=== PATIENT | male | born 1960 | race Caucasian/White ===

== ENCOUNTER 2016-07-24 06:16 | Day surgery (SDC) | payer BC ==
[2016-07-20 13:17] VITALS: BMI 24.3
[~2016-07-24 06:16] MED LIST: HYDROmorphone 1 MG/ML 1 ML SYRINGE IVP PRN; MIDAZOLAM 2 MG/2 ML VIAL IV PRN; ONDANSETRON 4 MG/2 ML VIAL IVP ONE
[2016-07-24] MEDS ORDERED: SODIUM CHLORIDE 0.9% 1,000 ML IV ONE (06:47)
[2016-07-24 07:10] LABS: Basophils % (A) 1 %; CH 32.4; CHCM 35.2; Eosinophils # (A) 0.2 k/uL (0-0.7); Eosinophils % (A) 4 %; HCT 43.4 % (39.0-53.0); HDW 2.84; HGB 14.8 gm/dL (13.0-17.5); Luc % (Auto) 2; Lymphocytes # (A) 1.5 k/uL (1.0-4.8); Lymphocytes % (A) 26 %; MCH 31.7 pg (25.0-35.0); MCHC 34.2 g/dL (31.0-37.0); MCV 92.5 fL (80.0-100.0); Mean Platelet Volume 7.1; Monocytes # (A) 0.3 k/uL (0-1.0); Monocytes % (A) 6 %; Neutrophils # (A) 3.5 k/uL (1.3-7.7); Neutrophils % (A) 62 %; RBC 4.69 m/uL (4.30-5.90); RDW 12.9 % (11.5-15.5); WBC 5.6 k/uL (3.8-10.6)
[2016-07-24 07:21] LABS: Anion Gap 8 mmol/L; Blood Urea Nitrogen 11 mg/dL (9-20); Calcium 8.7 mg/dL (8.4-10.2); Carbon Dioxide 27 mmol/L (22-30); Chloride 106 mmol/L (98-107); Glucose 91 mg/dL (74-99); Non-African American GFR(MDRD) >60 (>60 ml/min/1.73 sqM); Potassium 3.9 mmol/L (3.5-5.1); Sodium 141 mmol/L (137-145)
[2016-07-24] MEDS ORDERED: MIDAZOLAM 2 MG/2 ML VIAL ONE (08:32)
[2016-07-24] MEDS ORDERED: ISOPROTERENOL 250 MCG/1.25 ML SYR IV ONE (08:32)
[2016-07-24] MEDS ORDERED: PROPOFOL 10 MG/ML 20 ML VIAL IV ONE (08:32)
[2016-07-24] MEDS ORDERED: fentaNYL (PF) 50 MCG/ML 2 ML AMP ONE (08:32)
[2016-07-24] MEDS ORDERED: ATROPINE SULFATE 0.1 MG/ML 10ML SYRINGE ONE (08:32)
[2016-07-24] MEDS ORDERED: LIDOCAINE 2% INJ 20 MG/ML SQ ONE (09:14)
[2016-07-24] MEDS ORDERED: HEPARIN SODIUM (1,000 UNIT/ML) 1,000 UNIT in SODIUM CHLORIDE 0.9% 1,000 ML IRRIGATION ONE (09:28)
[2016-07-24] MEDS ORDERED: ACETAMINOPHEN TAB 325 MG TAB PO PRN (12:07)
[2016-07-24] MEDS ORDERED: HYDROcodone/APAP 5-325MG 1 EACH TAB PO PRN (12:07)
[2016-07-24] MEDS ORDERED: ACETAMINOPHEN IV (For NPO) 1,000 MG in EMPTY BAG 1 BAG IVPB ONE (12:07)
[2016-07-24 12:37] VITALS: RESP 16
--- NOTE | 2016-07-24 13:05 | P.PCN ---
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, outflow tract, left bundle branch block Result Successful ablation of RVOT PVCs, posteroseptal, deep focus Lead 1 showed mostly r/s morphology but a definite variability in the terminal end of the QRS Earliest QRS onset in lead 1 It preceded the onset of the PVC in the inferior leads by at least 20 ms Left bundle branch block morphology but with an initial shallow, negative morphology in lead V1 Activation mapping, earliest activation site -20 ms unipolar, negative RF application with good contact force resulted in elimination of the PVCs with a return thereafter but with a much lower frequency. At the most successful spot, contact force of greater than 20 g Most other RF lesions associated with contact force between 6-14 g Power 30-40 W We demonstrated non-capture at the earliest activation site following ablation, despite high output pacing Pace mapped at the sites, 85% concordance Significant reduction in outflow tract PVCs Procedure details Patient was brought to the EP lab in a fasting state. Written informed consent was obtained prior to the procedure. The right and left groins were prepped and draped as a protocol and venous sheaths were placed. Via these diagnostic catheters, high right atrial, His bundle, RV and coronary sinus, intracardiac echo catheter and mapping and ablation catheter were placed. Sinus cycle length 1031 ms, we are interval 156 seconds, QRS 127 ms, QT interval 429 ms. Baseline AH interval 95 ms, Baseline HV interval 35 ms Sinus node recovery 600, 500, 400 ms were 1526, 1299 and 1173 ms respectively. Corrected sinus node recovery times within normal limits. VA Wenckebach block greater than 600 ms in the baseline state. With atrial pacing AV node Wenckebach block 450 ms, no delta waves No slow pathway conduction Atrial extra stimulation was performed Burst stimulation in the right ventricle was performed Coronary sinus pacing was performed Program stimulation on high-dose Isuprel performed Programmed stimulation on IV atropine 1 mg performed 3-D mapping of the RVOT and right ventricle 3-D mapping using intracardiac echo, activation mapping and pace mapping PVC was mapped to the posteroseptal area. The earliest activation site was 13 mm from the commissure between the right and left coronary cusps The edge of the earliest site of ablation was clearly greater than 1 cm away from the cusps RF ablation Using an irrigated tip contact force catheter, RF ablation May successfully performed with 30-40 W of power. During RF ablation with a reasonable contact force of greater than 5 g, resulted in disappearance of PVCs Up to 20-25 g of force applied Maximum wattage of 40 W Best site obtained: -20 ms onset of unipolar, negative Pace mapped around 85% concordance but this was after some RF lesions at the site At the end of the procedure, non-capture using high output pacing at the RF sites, confirmed Some residual PVCs left but with a significant reduction This focus was a deep myocardial focus in the posterior septum, clearly later than 1 cm of a from the commissure between the right and left cusps The right coronary cusp was not mapped
[2016-07-24] MEDS: SODIUM CHLORIDE 0.9% 1,000 ML IV SCH ×2 (13:17→22:40)
[2016-07-24] MEDS: LACTATED RINGERS 1,000 ML IV SCH ×2 (17:41→22:39)
[2016-07-25 08:21] VITALS: BP 135/76; TEMP 97.9
[2016-07-25 09:29] VITALS: PULSE 66
--- NOTE | 2016-07-25 17:11 | DS ---
DATE OF ADMISSION: 07/24/2016 DATE OF DISCHARGE: 07/25/2016 Mr. Bailey is a 55-year-old male patient underwent ablation for very frequent PVCs ( ) significant reduction ( ) overnight. He does continue to have occasional PVCs since this is a deep posterior septal interventricular, septal focus. Today's 12-lead ECG showed normal sinus rhythm, normal cardiac intervals and normal ST segments in the precordial leads. He denied any chest discomfort. No undue shortness of breath. He is lying comfortably in bed. He has been ambulating in the hallways. No groin problems. No bleeding problems. Blood pressure 135/76 mmHg. Pulse rate in the 60s, afebrile, 97.9. Normal respirations, normal heart sounds. No murmurs. No gallops. Normal breath sounds. No rhonchi. No crackles. ABDOMEN: Soft, nontender. Groins are healed well, no hematoma. EXTREMITIES: Warm. No edema. IMPRESSION: 1. Very frequent RVOT premature ventricular contractions, posterior septal deep focus in the interventricular septum status post successful ablation with activation predominantly with activation mapping. 2. History of mild cardiomyopathy and hopefully this will improve over the next 3 months. PLAN: He may go home today and I will see him again on Sunday for a groin check and after that once again in about 3 months. At that time, a 24 hour Holter monitor and a 2D echo will be ordered.
== END 2016-07-25 10:07 | disposition home or self-care (01) ==
LOC: CATHEP 06:16 → 3OBS 11:54 → CATHEP 07-25 10:07
PROVIDERS: ATTEND Internal Medicine Clinical Cardiac Electrophysiology
DX: I49.3 Ventricular premature depolarization (principal); I42.0 Dilated cardiomyopathy; I44.7 Left bundle-branch block, unspecified; Z82.49 Family history of ischemic heart disease and other diseases of the circulatory system
CPT/HCPCS: 93623; 93662; 93654; 80048; 85025; C1894 ×2; C1769 ×2; C1730; C1759; C1732; J2001; J2250; J0461; J3010; J1644; J0131; J2704

== ENCOUNTER 2017-12-03 11:25 | Emergency (ER) | payer BC ==
[2017-12-03 11:36] VITALS: TEMP 99
[2017-12-03] MEDS ORDERED: ASPIRIN 81 MG PO STA (11:36)
--- NOTE | 2017-12-03 11:39 | ED ---
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 MD Complaint: chest pain - Related Data Home Medications Medication Instructions Recorded Confirmed Flecainide Acetate 100 mg PO Q12H 12/03/17 12/03/17 Verapamil [Isoptin] 40 mg PO BID 12/03/17 12/03/17 Allergies Allergy/AdvReac Type Severity Reaction Status Date / Time No Known Allergies Allergy Verified 12/03/17 11:56 Review of Systems ROS Statement: Those systems with pertinent positive or pertinent negative responses have been documented in the HPI. ROS Other: All systems not noted in ROS Statement are negative. EKG Findings - EKG Results: EKG: interpreted by BRENT, sinus rhythm (Sinus bradycardia with PVCs noted rate was 54. Interval 194 QRS duration 100 QT since QTC of 476/451 minimal voltage criteria for LVH.) Past Medical History Additional Past Medical History / Comment(s): SEE DR DYKES H&P, BORN WITH "DEFORMED KIDNEY", HX OF BENIGN BRAIN TUMOR History of Any Multi-Drug Resistant Organisms: None Reported Additional Past Surgical History / Comment(s): BRAIN TUMOR REMOVED 2011, KIDNEY SX (1995) Past Anesthesia/Blood Transfusion Reactions: No Reported Reaction Past Psychological History: No Psychological Hx Reported Smoking Status: Never smoker Past Alcohol Use History: None Reported Past Drug Use History: None Reported - Past Family History Son(s) Family Medical History: Myocardial Infarction ([place]) Additional Family Medical History / Comment(s): (2015) General Exam - General Exam Comments Initial Comments: Physical well-developed well-nourished awake alert oriented times 3 male Limitations: no limitations General appearance: alert, anxious Head exam: Present: atraumatic, normocephalic, normal inspection Eye exam: Present: normal appearance, PERRL, EOMI. Absent: scleral icterus, conjunctival injection, periorbital swelling ENT exam: Present: normal exam, mucous membranes moist Neck exam: Present: normal inspection. Absent: tenderness, meningismus, lymphadenopathy Respiratory exam: Present: normal lung sounds bilaterally. Absent: respiratory distress, wheezes, rales, rhonchi, stridor Cardiovascular Exam: Present: normal rhythm, bradycardia. Absent: systolic murmur, diastolic murmur, rubs, gallop, clicks GI/Abdominal exam: Present: soft, normal bowel sounds. Absent: distended, tenderness, guarding, rebound, rigid Extremities exam: Present: normal inspection, full ROM, normal capillary refill. Absent: tenderness, pedal edema, joint swelling, calf tenderness Back exam: Present: normal inspection Neurological exam: Present: alert, oriented X3, CN II-XII intact Psychiatric exam: Present: normal affect, normal mood Skin exam: Present: warm, intact, normal color, diaphoretic. Absent: rash Course Vital Signs 12/03/17 12/03/17 12/03/17 11:31 11:41 11:44 Temperature 99.0 F Pulse Rate 53 L 57 L 61 Respiratory 18 18 Rate Blood Pressure 150/77 154/74 126/75 O2 Sat by Pulse 97 97 Oximetry 12/03/17 12/03/17 11:50 13:30 Temperature Pulse Rate 59 L 77 Respiratory 18 18 Rate Blood Pressure 118/66 137/73 O2 Sat by Pulse 97 98 Oximetry - Reevaluation(s) Reevaluation #1: 12/03/17 13:52 Patient continued has some discomfort distress with attempted taking deep breaths. Initially was given some pain medication. Reevaluation #2: 12/03/17 13:53 The radiologist did call me regarding the findings patient did demonstrate evidence of a type A dissection of the aorta beginning just above the aortic root and terminating at the level of the arch vessels the ascending aorta measured 5 cm in caliber he did appear to be associated acute intramural hematoma at the level of the aortic arch with contiguous extension of intramural hematoma to involve the right main pulmonary artery narrowing at 2 caliber 1.8 cm versus 2.8 cm on the left Reevaluation #3: 12/03/17 13:54 I did discuss the findings immediately after recognition with the family members they have agreed at [facility] is their hospital of choice. I did discuss the case with Dr. Hudson at [facility] he has contacted the thoracic surgery service and they've agreed to set the patient transfer he'll be sent by helicopter. Reevaluation #4: 12/03/17 13:57 Patient was noted to become diaphoretic pale and drop his blood pressure. Fluids have been ordered blood has been ordered. Reevaluation #5: 12/03/17 13:58 I did let family members know the critical nature of the patient's presenting illness. There are where the it is possible he may not survive as episode. Critical Care Time Critical Care Time: Yes Critical Care Time: 47 to critical care time which includes initial monitoring the EMS run and discussed with paramedics history physical labs x-rays multiple reevaluation of the patient. Discussion with radiologist discussion with multiple family members regarding the findings discussed with the accepting physician at [facility] documentation the above. Disposition Clinical Impression: Aortic arch dissection, Chest pain Disposition: OTHER INSTITUTION NOT DEFINED Condition: Critical Is patient prescribed a controlled substance at d/c from ED?: No Referrals: Dee Stokes MD [Primary Care Provider] - 1-2 days - Out of Hospital Transfer - Req. Specs Out of Hospital Transfer - Requested Specifics: Other Emergency Center
[2017-12-03] MEDS: NITROGLYCERIN SL TABS 0.4 MG TAB SUBLINGUAL STA ×2 (11:41→11:47)
[2017-12-03 11:59] LABS: ALT 28 U/L (21-72); AST 26 U/L (17-59); Alkaline Phosphatase 54 U/L (38-126); Amylase 57 U/L (30-110); Anion Gap 10 mmol/L; Blood Urea Nitrogen 14 mg/dL (9-20); Calcium 8.6 mg/dL (8.4-10.2); Carbon Dioxide 24 mmol/L (22-30); Chloride 106 mmol/L (98-107); Glucose 119 mg/dL (74-99); Lipase 130 U/L (23-300); Magnesium 1.7 mg/dL (1.6-2.3); Potassium 4.7 mmol/L (3.5-5.1); Sodium 140 mmol/L (137-145); Total Bilirubin 0.5 mg/dL (0.2-1.3); Total Protein 6.3 g/dL (6.3-8.2)
[2017-12-03 12:07] LABS: Basophils % (A) 0 %; Eosinophils # (A) 0.1 k/uL (0-0.7); Eosinophils % (A) 1 %; HCT 42.3 % (39.0-53.0); HGB 14.7 gm/dL (13.0-17.5); Lymphocytes # (A) 1.7 k/uL (1.0-4.8); Lymphocytes % (A) 17 %; MCHC 34.8 g/dL (31.0-37.0); Mean Platelet Volume 6.9; Monocytes # (A) 0.4 k/uL (0-1.0); Monocytes % (A) 4 %; Neutrophils # (A) 7.8 k/uL (1.3-7.7); Neutrophils % (A) 77 %; Platelet Count 318 k/uL (150-450); RDW 13.4 % (11.5-15.5); WBC 10.1 k/uL (3.8-10.6)
[2017-12-03 12:10] LABS: Creatine Kinase 111 U/L (55-170)
[2017-12-03 12:11] LABS: Partial Thromboplastin Time 20.2 sec (22.0-30.0); Prothrombin Time 10.2 sec (9.0-12.0)
[2017-12-03 12:16] LABS: D-Dimer 1.42 mg/L FEU (<0.60)
[2017-12-03 12:23] LABS: Creatine Kinase MB 1.1 ng/mL (0.0-2.4); Troponin I <0.012 ng/mL (0.000-0.034)
--- NOTE | 2017-12-03 12:34 | XR ---
EXAMINATION TYPE: XR chest 2V DATE OF EXAM: 12/03/2017 COMPARISON: None HISTORY: 57-year-old male with a chest tightness, shortness of breath, chest pain TECHNIQUE: Frontal and lateral views FINDINGS: Heart is mildly enlarged. Aorta within normal limits. Mild interstitial prominence and mild peribronc hial cuffing. No consolidation or pleural effusion. IMPRESSION: 1. Mild cardiomegaly. 2. Interstitial prominence and peribronchial cuffing. Possible bronchitis or asthma. 3. Prevascular congestion considered less likely given the lack of pleural effusions. Clinically rebecca elate.
[2017-12-03] MEDS ORDERED: KETOROLAC 60 MG/2 ML VIAL IM STA (12:42)
--- NOTE | 2017-12-03 13:26 | CT ---
EXAMINATION TYPE: CT angio chest DATE OF EXAM: 12/03/2017 COMPARISON: Correlation radiograph same day HISTORY: 57-year-old male Chest tightness and diaphoresis. TECHNIQUE: Contiguous axial scanning of the chest performed with IV Contrast, patient injected with 1 00 mL of Isovue 370. Coronal/sagittal MIP reconstructions performed. CT DLP: 584 mGycm Automated exposure control for dose reduction was used. FINDINGS: Heart is mildly enlarged with a small effusion/pneumopericardium. There is a type A aortic dissection beginning just beyond the aortic root. There is dynamic partial c ollapsibility of the true lumen noted. Para-aortic soft tissue stranding and soft tissue density at t he level of the aortic arch compatible with intramural hematoma. The ascending aorta measures up to 5.0 cm. Dissection appears to terminate at the level of the great vessels. The degree of opacification in the aorta is not adequate for optimal assessment of great ves angela enhancement. Intramural hematoma dissects along the central pulmonary arteries particularly on the right narrowin g vessel caliber to 1.3 cm versus 2.8 cm on the left. No evidence for pulmonary embolus. Scattered calcified mediastinal and right hilar lymph nodes compatible with prior granulomatous disea se. Hazy densities in both lower lungs suspected to represent generalized atelectasis. Strandy atelectasi s posterior right midlung. Calcified granuloma anterior right upper lobe. No suspicious caudal consol idation or pleural effusion. Visualized upper abdomen shows small hilar splenule. Bones: Endplate spondylosis mid to lower thoracic spine with multiple endplate Schmorl's nodes. IMPRESSION: 1. 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 THE ASCENDING AORTA MEASURES UP TO 5.0 CM IN CALIBER. MO RE DETAILED ASSESSMENT OF GREAT VESSEL ENHANCEMENT COULD BE PERFORMED WITH A DEDICATED CTA OF THE AOR TA. 2. THERE IS ASSOCIATED ACUTE INTRAMURAL HEMATOMA AT THE LEVEL OF THE AORTIC ARCH WITH CONTIGUOUS EXTE NSION OF INTRAMURAL HEMATOMA TO INVOLVE THE RIGHT MAIN PULMONARY ARTERY NARROWING IT TO A CALIBER OF 1.8 CM VERSUS 2.8 CM ON THE LEFT. 3. SMALL PERICARDIAL EFFUSION/HEMOPERICARDIUM. 4. NO EVIDENCE FOR PULMONARY EMBOLUS. Critical findings called to Dr. Robison in the ER at 1:20 PM.
[2017-12-03] MEDS ORDERED: ESMOLOL IN SODIUM CHLORIDE PMX 2.5 GM in SALINE 1 250ML.BAG IV ONE (13:38)
[2017-12-03] MEDS: SODIUM CHLORIDE 0.9% 1,000 ML IV ONE ×2 (14:00→14:01)
[2017-12-03 14:04] VITALS: RESP 20
[2017-12-03 14:49] VITALS: PULSE 85
[2017-12-03 14:54] VITALS: BP 69/54
== END 2017-12-03 15:07 | disposition other institution (70) ==
LOC: EC 11:25
DX: I71.00 Dissection of unspecified site of aorta (principal); Z86.69 Personal history of other diseases of the nervous system and sense organs; Z98.890 Other specified postprocedural states; Z79.899 Other long term (current) drug therapy
CPT/HCPCS: 36415; 93005; 86900; 86901; 85379; 83880; 80053; 82150; 82550; 82553; 83690; 83735; 84484; 85025; 85610; 85730; 86850; 86920; 71046; 71275; 99291; 96360; 96361; P9016; Q9967

== ENCOUNTER → 2019-10-20 | Outpatient (CLI) | payer OTHER ==
--- NOTE | 2019-10-20 16:32 | CT ---
EXAMINATION TYPE: CT abdomen pelvis wo con DATE OF EXAM: 10/20/2019 HISTORY: History of renal stones and removal, possible fragments. Patient unsure of which side. Flank pain per order. CT DLP: 427.2 mGycm. Automated Exposure Control for Dose Reduction was Utilized. TECHNIQUE: CT scan of the abdomen and pelvis is performed without oral or IV contrast. COMPARISON: NONE FINDINGS: Within the limitations of a non-contrast study, the following observations are made. LUNG BASES: No significant abnormality is appreciated. LIVER/GB: No significant abnormality is appreciated. PANCREAS: No significant abnormality is seen. SPLEEN: No significant abnormality is seen. ADRENALS: No significant abnormality is seen. KIDNEYS: There is 9 mm calculus on long axis medially upper pole of the left kidney axial image 42. T here is a larger 15 mm calculus on long axis lower pole level left kidney axial image 62. There are r oughly 3-4 additional punctate 1 to 2 mm left renal calculi thought present. No right-sided renal candelaria culi. No hydronephrosis or obstructing ureteral calculi seen bilaterally. Some areas of cortical thin rafael in both kidneys with exophytic low dense lesion laterally mid to lower pole of the right kidney favoring simple thin-walled cyst and 1.3 cm simple appearing thin-walled cyst upper pole of the left kidney anteriorly coronal image 53. Single 4 mm dependent calculus in bladder axial image 122 BOWEL: Suboptimal evaluation without enteric contrast. No suspicious small or large bowel dilatation. Mild to moderate focal fat stranding near junction of left and sigmoid colon in the upper pelvis axi al image 105. GENITAL ORGANS: Upper limits of normal. LYMPH NODES: No greater than 1cm abdominal or pelvic lymph nodes are appreciated. OSSEOUS STRUCTURES: Bilateral pars defect L5 level with a grade 1 anterolisthesis L5 on S1. Moderate to severe disc space narrowing affecting disc phenomenon and endplate sclerosis at this level. 2 scat tered prominent Schmorl nodes throughout the thoracolumbar spine. Hemangioma at L1 level noted griffin l image 59 for reference. Facet arthropathy lower lumbar levels. Moderate axial joint space loss both hips. OTHER: No significant additional abnormality is seen. IMPRESSION: 1. Left-sided nephrolithiasis as detailed above. No hydronephrosis or obstructing ureteral calculi bi laterally. No right-sided nephrolithiasis. Small 4 mm calculus within bladder. Background chronic med ical renal disease with cortical volume loss and simple appearing thin-walled cysts bilaterally. 2. Mild to moderate uncomplicated acute colitis centered at junction of left and sigmoid colon could be product of diverticulitis. Correlate clinically.
== END | disposition home or self-care (01) ==
LOC: RADCTMAIN 15:54
PROVIDERS: ATTEND Urology
DX: N20.0 Calculus of kidney (principal); N21.0 Calculus in bladder; K52.9 Noninfective gastroenteritis and colitis, unspecified
CPT/HCPCS: 74176

== ENCOUNTER → 2020-02-25 | Outpatient (CLI) | payer BC, OTHER ==
--- NOTE | 2020-02-25 16:27 | CT ---
EXAMINATION TYPE: CT abdomen wo con DATE OF EXAM: 02/25/2020 COMPARISON: 10/20/2019 INDICATION: Renal stone DLP: 185.1 mGycm, Automated exposure control for dose reduction was used. CONTRAST: 0 mL of Isovue 300. Study performed without Oral Contrast TECHNIQUE: Axial images were obtained from above the diaphragm to the pubic rami in the axial plane a t 5 mm thick sections. Reconstructed images are reviewed on the computer in the coronal plane. FINDINGS: Limited CT sections are obtained the lung bases. The lung bases are clear. CT ABDOMEN: Liver: Normal Spleen: Normal Pancreas: Normal Adrenal glands: The adrenal glands are normal. Gallbladder: Normal Kidneys: No masses are evident. No hydronephrosis is present. There is a 5.1 cm cyst measuring 24 H [place] units on the posterior lateral left mid kidney. Nonobstructing renal stones are present on the left kidney. This includes a 0.3 cm transverse dimension stone at the inferior pole, 0.8 cm nono bstructing inferior pole left renal stone and a 0.8 cm medial superior left renal stone.r Aorta: Normal Inferior vena cava: Normal. Loops of bowel within the abdomen and upper pelvis without contrast are normal. IMPRESSIONS: 1. Nonobstructing left renal stones. 2. Cyst on the right kidney. Consider correlation with ultrasound. This is not simple cyst based on t he CT findings.
== END | disposition home or self-care (01) ==
LOC: RADCTMAIN 08:39
PROVIDERS: ATTEND Urology
DX: N20.0 Calculus of kidney (principal); N28.1 Cyst of kidney, acquired; Z91.018 Allergy to other foods
CPT/HCPCS: 74150